=== PATIENT | male | born 1945 | race Caucasian/White ===

== ENCOUNTER 2022-01-17 06:52 | Emergency (ER) | payer MEDICARE, SELFPAY ==
[2022-01-17 07:09] VITALS: BP 130/75; PULSE 71; RESP 16; TEMP 36.5; O2SAT 100
--- NOTE | 2022-01-17 07:27 | ED.WOUNDLAC ---
HPI - Wound/Laceration General Chief Complaint: Wound/Laceration Stated Complaint: cut right hand with a knife Time Seen by Provider: 01/17/22 07:26 Source: patient Mode of arrival: ambulatory Limitations: no limitations History of Present Illness HPI narrative: Patient presents with a laceration at the dorsal side of right hand accidentally by a knife. Knife was laying down on the table somehow patient lay his hand on the table and got caught by the knife. Is not a puncture wound. Last tetanus shot few months ago. Patient is healthy otherwise, does not take blood thinners. Related Data Allergies Allergy/AdvReac Type Severity Reaction Status Date / Time No Known Allergies Allergy Mild Unverified 09/05/07 11:52 house dust Allergy Unknown allergic Verified 11/16/17 21:20 mold Allergy Unknown allergic Verified 11/16/17 21:20 NO KNOWN DRUG ALLERGIES Allergy Y Uncoded 05/05/03 15:33 (Class Allergy) Review of Systems Review of Systems: CONSTITUTIONAL: Denies fever, chills, or sweats. EYES: Denies visual changes, redness, or discharge. ENT: Denies rhinorrhea, congestion, sore throat, or otalgia. CARDIOVASCULAR: Denies chest pain, palpitations, or edema. RESPIRATORY: Denies cough or dyspnea. GASTROINTESTINAL: Denies abdominal pain, nausea, vomiting, or diarrhea. GENITOURINARY: Denies dysuria or hematuria. SKIN: Denies rash or itching. MUSCULOSKELETAL: Denies back pain, joint pain, or myalgia. NEUROLOGIC: Denies headache, numbness, or weakness. PSYCHIATRIC: Denies anxiety or depression. [facility] Family History Family History Grandparent Family history of osteoarthritis Mother Family history of malignant neoplasm of uterus, Onset Age: 46 Social History Social History Smoking status: Current every day smoker Alcohol intake: current Exam Narrative: General appearance: Well-developed, well-nourished Skin: Normal color, 1.5 cm laceration at the dorsal side of right hand, subcutaneous, hematoma, oozing blood, patient is able to flex and extend right hand the fingers without any restriction. Vascular: Normal peripheral pulses, normal capillary refill. Musculoskeletal: Normal range of motion, nontender back Neurologic: Alert and oriented ?3, Course Course Emergency Course: Resolved Vital Signs Vital signs: Vital Signs Temperature 36.5 C 01/17/22 07:09 Pulse Rate 71 01/17/22 07:09 Respiratory Rate 16 01/17/22 07:09 Blood Pressure 130/75 01/17/22 07:09 Pulse Oximetry 100 01/17/22 07:09 Temperature 36.5 C 01/17/22 07:09 Pulse Rate 71 01/17/22 07:09 Respiratory Rate 16 01/17/22 07:09 Blood Pressure 130/75 01/17/22 07:09 Pulse Oximetry 100 01/17/22 07:09 Procedures Laceration Laceration 1: Date: 01/17/22 Time: 08:07 Site: hand Side (If applicable): right Size (cm): 1.5 Description: linear Depth: simple, single layer Local Anesthetic: lidocaine 1% and with epi Amount of anesthesia used (mL): 3 Pre-repair: wound explored ====== Skin Level ====== Skin layer closed with: nylon Size (cm): 6-0 Number of sutures: 4 Technique: simple, interrupted ====== Subcutaneous Layer ====== ====== Muscle Layer ====== ====== Tendon Layer ====== Critical Care Time Critical Care Time Critical Care Time: No Discharge Plan Discharge Clinical Impression: Laceration Patient Disposition: Home, Self-Care Condition: Improved Instructions: Antibiotic Form, Laceration (ED) Add
[2022-01-17] MEDS: LIDO 1%/EPINEPHRINE 1:100,000 20 ML VIAL (07:56)
[2022-01-17 08:19] VITALS: BP 117/73; PULSE 72; RESP 16; TEMP 36.7; O2SAT 98
== END 2022-01-17 08:25 | disposition home or self-care (01) ==
LOC: ANHED 07:59
PROVIDERS: Emergency Provider Emergency Medicine
DX: S61.411A Laceration without foreign body of right hand, initial encounter (principal); F17.200 Nicotine dependence, unspecified, uncomplicated; W26.0XXA Contact with knife, initial encounter
CPT/HCPCS: 12001; 99282